=== PATIENT | female | born 1980 | race Caucasian/White ===

== ENCOUNTER 2016-12-27 05:08 | Day surgery (SDC) | payer OTHER ==
[~2016-12-27] VITALS: Ht 167.6 cm; Wt 86.0 kg
[~2016-12-27 05:08] MED LIST: MIRENA52 MG IY
[2016-12-27 05:50] VITALS: BP 131/90
[2016-12-27] MEDS ORDERED: NORCO 5/3251 TABLET PO (08:24)
[2016-12-27] MEDS ORDERED: MOTRIN600 MG PO (08:24)
[2016-12-27 10:09] VITALS: BP 136/91
[2016-12-27 11:13] VITALS: BP 126/74
== END 2016-12-27 11:30 | disposition home or self-care (01) ==
LOC: SDC 05:08
PROC: 0UPD7HZ Removal of Contraceptive Device from Uterus and Cervix, Via Natural or Artificial Opening (ICD-10-PCS; principal; 2016-12-27)
PROC: 0U574ZZ Destruction of Bilateral Fallopian Tubes, Percutaneous Endoscopic Approach (ICD-10-PCS; principal; 2016-12-27)
DX: Z30.2 Encounter for sterilization (principal); Z30.432 Encounter for removal of intrauterine contraceptive device; F70 Mild intellectual disabilities; E66.9 Obesity, unspecified; Z68.32 Body mass index [BMI] 32.0-32.9, adult; Z83.3 Family history of diabetes mellitus; Z82.49 Family history of ischemic heart disease and other diseases of the circulatory system; Z80.3 Family history of malignant neoplasm of breast
CPT/HCPCS: J0330; J1100; J1170; J1885; J2175; J2250; J2405; J2765; J3010; S0020

== ENCOUNTER 2018-01-14 21:45 | Emergency (ER) | payer OTHER ==
[~2018-01-14] VITALS: Ht 167.6 cm; Wt 93.3 kg
[~2018-01-14 21:45] MED LIST changes: +MOTRIN600 MG PO; +NORCO 5/3251 TABLET PO
[2018-01-14 23:03] LABS: HEMATOCRIT 38.1 % (36.0-46.0); MCH 29.3 PG (29.0-34.0); MCHC 34.1 G/DL (30.0-36.0); PLATELET COUNT 341 K/uL (156-360); RBC DIS.WIDTH-CV 12.4 % (11.8-14.6); RBC DIS.WIDTH-SD 38.7 % (39-53); RED BLOOD COUNT 4.43 M/uL (3.80-5.20); WHITE BLOOD COUNT 9.1 K/uL (4.1-10.2)
[2018-01-14 23:14] LABS: ALBUMIN 4.2 g/dL (3.2-4.8); CHLORIDE 105 mEq/L (99-109); SODIUM 139 mEq/L (136-147)
[2018-01-14 23:16] LABS: GLUCOSE 93 mg/dL (70-99); TOTAL PROTEIN 7.7 g/dL (6.4-8.3)
[2018-01-14 23:18] LABS: TOTAL BILIRUBIN 0.2 mg/dL (0.0-1.0)
[2018-01-14] MEDS ORDERED: DOXYCYCLINE HY100 MG PO (23:19)
[2018-01-14 23:20] LABS: ALKALINE PHOSPHATASE 78 IU/L (3-129); CREATININE 0.9 mg/dL (0.6-1.3); GFR ESTIMATE (CALCULATED) > 59 mL/min/
[2018-01-14 23:21] LABS: UREA NITROGEN (BUN) 13 mg/dL (9-23)
[2018-01-14 23:22] LABS: AST (GOT) 14 IU/L (2-34)
[2018-01-14 23:23] LABS: ALT (GPT) 14 IU/L (3-49)
[2018-01-14 23:36] VITALS: BP 135/88
[2018-01-14 23:45] LABS: ERTH.SED.RATE 20 MM/HR (0-20)
[2018-01-17 08:49] LABS: LYME DISEASE SEROLOGY SCREEN NEGATIVE (NEGATIVE)
== END 2018-01-14 23:37 | disposition home or self-care (01) ==
LOC: EME 21:45
PROVIDERS: Nurse Practitioner Family
DX: A26.0 Cutaneous erysipeloid (principal)
CPT/HCPCS: 80053; 85027; 85651; 86618; 99281; 99284